=== PATIENT | female | born 1945 | race Caucasian/White ===

== ENCOUNTER → 2019-07-05 | Outpatient (CLI) | payer MEDICARE ==
[~2019-07-05] MED LIST: ALBU8.5H8 INH; ASPI81TA45 PO; BECL8.7A6 INH; CYAN1TAB39 PO; ESOM40CA PO; FOLI-17 PO; FURO-93 PO; FURO10SO PO; FURO40TA6 PO; GUAI600T80 PO; LACT10SO24 PO; LASIX PO; LEVO25TA2 PO; LEVO500T47 PO; LISI-170 PO; MAGN400T9 PO; METO25TA35 PO; METOPROLOL; MULT-658 PO; OMEP-110 PO; POTA10TA11 PO; POTA20TA14 PO; POTA20TA91 PO; POTASSIUM; PRED10TA PO; PROP10TA16 PO; REGADENOSON 0.4 MG/5 ML SYRINGE ONE; RIFA550T4 PO; SIMV20TA PO; SIMVASTATIN; SPIR50TA PO; SPIR50TA4 PO; SPIRONOLACTONE; THIA100T10 PO; THIA100T67 PO; TIOT18CA INH
== END | disposition home or self-care (01) ==
LOC: CVU 07:04
PROVIDERS: ATTEND Internal Medicine Cardiovascular Disease
CPT/HCPCS: 78452 ×2; 93017 ×2; 93306 ×2; A9502; J2785 ×2